=== PATIENT | male | born 1945 | race Caucasian/White ===

== ENCOUNTER 2021-01-30 13:17 | Emergency (ER) | payer BC, SELFPAY ==
--- NOTE | ~2021-01-30 | CT_ITS ---
EXAMINATION: CT brain wo con DATE: 01/30/2021 15:11 INDICATION: Status post fall. Head injury. TECHNIQUE: Computed tomography (CT) of the head was performed without intravenous contrast. The dose- length product was 681.00 mGy-cm. Automated exposure control and iterative reconstruction technique w ere employed. COMPARISON: CT dated 11/27/2007 FINDINGS: No acute intracranial hemorrhage, infarction, mass or mass effect. No ventriculomegaly or m idline shift. Basilar cisterns are patent. Mild generalized atrophy. Paranasal sinuses and mastoids a re pneumatized. No depressed skull fractures. There are scattered mild periventricular and subcortica l white matter changes, most likely related to small vessel ischemic disease (microangiopathy). IMPRESSION: 1. No acute intracranial abnormality. 2: Chronic age-related findings. Reviewed, dictated and finalized at location B.
[2021-01-30 13:25] VITALS: BP 135/80; PULSE 118; RESP 16; TEMP 36.7; O2SAT 97
--- NOTE | 2021-01-30 15:19 | ED.HEATRA ---
HPI - Head Injury General Chief complaint: Head Injury Stated complaint: fall/hi/no thinners Time Seen by Provider: 01/30/21 15:00 History of Present Illness HPI Narrative: Tripped and fell onto concrete this afternoon. Struck his forehead and sustained a laceration. No LOC, weakness, numbness, confusion, nausea. He is not on any blood thinners. Related Data Allergies Allergy/AdvReac Type Severity Reaction Status Date / Time No Known Allergies Allergy Unverified 03/15/16 07:07 Review of Systems Review of Systems: All systems reviewed & are unremarkable except as noted in HPI and below Constitutional: Constitutional: Denies fever(s) and Denies weakness Eyes: Eyes: Denies change in vision and Denies photophobia ENT: Denies dizziness Cardiovascular: Cardiovascular: Denies chest pain Respiratory: Respiratory: Denies dyspnea Gastrointestinal: Gastrointestinal: Denies nausea Genitourinary: Genitourinary: Reports no additional male genitourinary complaints Musculoskeletal: Musculoskeletal: Denies back pain Neurologic: Denies confusion, Denies dizziness, Denies syncope, Denies headache(s), Denies numbness and Denies weakness [facility] Family History Family History Father Family history of malignant neoplasm Mother Family history of chronic obstructive pulmonary disease Social History Social History Smoking status: Heavy tobacco smoker Exam Const: General: healthy appearing, no acute distress and alert Orientation/consciousness: patient oriented x3 HENMT: Other: 3 cm irregular forehead laceration with abrasion of surrounding skin Eyes: Conjunctivae: conjunctivae normal Pupils: Equal, round and reactive pupils present EOM: EOMs intact bilaterally Neck: Neck: normal visual inspection Resp: Effort & Inspection: normal respiratory effort Auscultation: clear to auscultation bilaterally Cardio: Rate: regular rate Rhythm: regular rhythm Back/Spine/Pelvis: Other: nontender Skin: General skin exam: normal color Neuro: General: patient oriented x3, moves all extremities and no focal motor deficits Cranial nerves: Yes CN's II-XII intact bilaterally Speech: normal speech Gait exam (Neuro): Normal gait present Extrem: General: normal to inspection Course Vital Signs Vital signs: Vital Signs Temperature 36.7 C 01/30/21 13:25 Pulse Rate 118 H 01/30/21 13:25 Respiratory Rate 16 01/30/21 13:25 Blood Pressure 135/80 01/30/21 13:25 Pulse Oximetry 97 01/30/21 13:25 Temperature 36.7 C 01/30/21 13:25 Pulse Rate 101 H 01/30/21 15:57 Respiratory Rate 17 01/30/21 15:57 Blood Pressure 143/81 H 01/30/21 15:57 Pulse Oximetry 96 01/30/21 15:57 Procedures Laceration Laceration 1: Site: face (forhead) Size (cm): 3 Description: irregular Depth: simple, single layer Local Anesthetic: lidocaine 1% and with epi Amount of anesthesia used (mL): 3 Pre-repair: wound explored and irrigated ====== Skin Level ====== Skin layer closed with: other (fast gut) Size (cm): 5-0 Number of sutures: 6 Technique: simple, interrupted ====== Subcutaneous Layer ====== ====== Muscle Layer ====== ====== Tendon Layer ====== MDM - Head Injury Differential Diagnosis Differential diagnosis: Likely concussion without loss of consciousness, closed head injury, subarachnoid hematoma, subdural hematoma and other (laceration) Imaging Data Radiologist's impression: ITS Impressions Head CT 01/30/21 15:18 IMPRESSION: 1. No acute intracranial abnormality. 2: Chronic age-related findings. Discharge Plan Discharge Clinical Impression: Closed head injury, Forehead laceration Patient Disposition: Home, Self-Care Condition: Stable Instructions: Head Inju
[2021-01-30] MEDS: LIDO 1%/EPINEPHRINE 1:100,000 20 ML VIAL INFILTRATE (15:34)
[2021-01-30 15:57] VITALS: BP 143/81; PULSE 101; RESP 17; O2SAT 96
== END 2021-01-30 15:58 | disposition home or self-care (01) ==
PROVIDERS: Emergency Provider Emergency Medicine; PCP Family Medicine
DX: S01.81XA Laceration without foreign body of other part of head, initial encounter (principal); F17.200 Nicotine dependence, unspecified, uncomplicated; W01.0XXA Fall on same level from slipping, tripping and stumbling without subsequent striking against object, initial encounter
CPT/HCPCS: 12013; 70450; 99284

== ENCOUNTER → 2021-04-24 10:46 | Outpatient (CLI) | payer BC, SELFPAY ==
--- NOTE | ~2021-04-24 | XR_ITS ---
XR knee LT min 4V DATE: 04/24/2021 11:11 INDICATION: Left knee pain TECHNIQUE: [place] and standing AP, PA and lateral views COMPARISON: 01/31/2012 left knee FINDINGS: There is obliteration of the medial compartment joint space. There is periarticular spurring at the patellofemoral and medial and lateral compartments. Chondrocalcinosis is noted at the lateral compartment. Diffuse osteopenia. No fracture, dislocation, periosteal reaction or bone destruction. There is mild lateral subluxation at the femoral tibial joint. There is suggestion of mild suprapatellar knee joint effusion. IMPRESSION: Tricompartment osteoarthritic arthritis, particularly severe at the medial compartment Femoral tibial joint mild lateral subluxation Osteopenia Chondrocalcinosis Reviewed, dictated and finalized at location A.
== END ==
PROVIDERS: PCP Family Medicine; Visit Provider Family Medicine
DX: M25.562 Pain in left knee (principal); M17.12 Unilateral primary osteoarthritis, left knee; S83.192A Other subluxation of left knee, initial encounter; M85.862 Other specified disorders of bone density and structure, left lower leg; M11.262 Other chondrocalcinosis, left knee
CPT/HCPCS: 73564

== ENCOUNTER 2022-05-09 08:46 | Outpatient (CLI) | payer BC, SELFPAY ==
--- NOTE | ~2022-05-09 | MR_ITS ---
EXAMINATION: MR brain/brain stem wo con DATE: 05/09/2022 09:31 INDICATION: Memory loss. TECHNIQUE: Magnetic resonance imaging (MRI) of the brain and brainstem was performed without intraven ous contrast. COMPARISON: Head CT 01/30/2021 FINDINGS: There are scattered areas of nonspecific increased T2-weighted signal intensity in the cere bral white matter. There is no intracranial hemorrhage, acute infarction, or abnormal intracranial ma ss lesion. The ventricles are normal in size. The mastoid air cells are normal. There is mild mucosal thickening in the paranasal sinuses. The orbits are normal. IMPRESSION: 1. Moderate nonspecific cerebral white matter disease, which likely represents chronic small vessel i schemic disease. Reviewed, dictated and finalized at location A. IMPRESSION: 1. Moderate nonspecific cerebral white matter disease, which likely represents chronic small vessel ischemic disease.
== END 2022-05-09 08:47 | disposition home or self-care (01) ==
LOC: ANHIMG 08:47
PROVIDERS: PCP Family Medicine; Visit Provider Family Medicine
DX: R41.3 Other amnesia (principal); R90.82 White matter disease, unspecified
CPT/HCPCS: 70551

== ENCOUNTER 2023-07-13 16:33 | Emergency (ER) | payer BC, SELFPAY ==
[2023-07-13 16:34] VITALS: BP 152/77; PULSE 89; RESP 16; TEMP 37; O2SAT 95
[2023-07-13 16:41] VITALS: O2SAT 94
[2023-07-13 16:42] VITALS: BP 154/85; O2SAT 94
--- NOTE | 2023-07-13 16:56 | PC.NURSE ---
EDP at bedside to assess pt..
--- NOTE | 2023-07-13 17:06 | ED.ABDPAIN ---
HPI - Abdominal Pain General Chief Complaint: Abdominal Pain Stated Complaint: constipation, urinary retention Time Seen by Provider: 07/13/23 16:47 History of Present Illness HPI narrative: 78-year-old male reports for evaluation for constipation for 3 days. Patient states his last bowel movement was 3 days ago and he feels like he needs to have a bowel movement but cannot. He is also reporting decreased urine output for the past 3 days. Patient reports difficulty initiating his stream and dribbling when he tries to urinate. He denies abdominal pain, nausea or vomiting, diarrhea, melena or hematochezia, chest pain or shortness of breath, fever, body aches or chills, dysuria or hematuria, back pain, scrotal or penile pain or swelling. He states he follows with urologist Dr. Carter but is unsure why, he thinks possibly for enlarged prostate. He has never had issues urinating in the past. Reports he normally has 1 bowel movement a day. Related Data Home Medications Medication Instructions Recorded Confirmed glucosamine-chondroitin 500 mg-400 1 cap PO BID 04/19/23 04/19/23 mg capsule turmeric root extract 500 mg tablet 500 mg PO BID 04/19/23 04/19/23 Allergies Allergy/AdvReac Type Severity Reaction Status Date / Time No Known Allergies Allergy Unverified 04/19/23 10:12 Review of Systems Review of Systems: CONSTITUTIONAL: Denies fever, chills EYES: Denies visual changes, redness, or discharge. ENT: Denies rhinorrhea, congestion, sore throat, or otalgia. CARDIOVASCULAR: Denies chest pain, palpitations, or edema. RESPIRATORY: Denies cough or dyspnea. GASTROINTESTINAL: See HPI GENITOURINARY: See HPI SKIN: Denies rash or itching. MUSCULOSKELETAL: Denies back pain, joint pain, or myalgia. NEUROLOGIC: Denies headache, numbness, dizziness, or weakness. PSYCHIATRIC: Denies anxiety or depression. [facility] Past Medical History Medical History Headache, unspecified Low HDL (under 40) Memory problem Obstructive and reflux uropathy, unspecified Other male erectile dysfunction Other spondylosis with radiculopathy, lumbar region Primary generalized (osteo)arthritis Primary hypertension Family History Family History Father Family history of malignant neoplasm Mother Family history of chronic obstructive pulmonary disease Social History Social History Smoking status: Former smoker Alcohol intake: current Substance use: never Substance use type: does not use Lack of Transportation: No Lack of Food: Never True Current Housing: I Have Housing Concerned About Future Housing: No Difficulty Paying Gas/Electric Bills: No Difficulty Paying for Meds: No Currently Unemployed: No Education: Trade/Vocational Certificate Difficulty w/ Childcare or Family Care: No Living arrangements: with family Occupation/Education: retired Gender identity (if verbalized by the patient): Male Sexual Orientation (if Verbalized by the Patient): Straight or Heterosexual Exam Narrative: GENERAL: Well-appearing, in no acute distress. Patient resting comfortably in exam bed. He is pleasant and conversational. HEAD: Normocephalic EYES: PERRLA ENT: Nares clear. Mucous membranes moist. Oropharynx without tonsillar hypertrophy exudate or other lesions. NECK: Supple. CHEST: No respiratory distress. Clear to auscultation, no adventitious breath sounds. HEART: Regular rate and rhythm. No murmur heard. Normal peripheral pulses. ABDOMEN: Soft, nontender, normal active bowel sounds. No rebound, guarding or rigidity. No CVA tenderness. Rectal exam w/o internal or external hemorrhoids. No tenderness to prostate. No melena or hematochezia. No fecal impaction. : Scrotum and penis without edema or erythema, no lesions. No
[2023-07-13 17:09] LABS: Basophils Percent Auto 0.2 % (0.2-1.2); Eosinophils Percent Auto 0.1 % (0-4.4); Hematocrit 39.7 % (42.0-52.0); Hemoglobin 13.4 g/dL (14.0-18.0); Immature Granulocyte Absolute 0.02 K/mm3 (0.00-0.031); Immature Granulocyte Percent A 0.2 % (0-0.5); Lymphocytes Absolute Auto 1.35 K/mm3 (0.9-3.2); Lymphocytes Percent Auto 12.2 % (18.3-44.2); Mean Corpuscular HGB Conc 33.8 g/dl (32-36); Mean Corpuscular Hemoglobin 31.5 pg (26-34); Mean Corpuscular Volume 93.2 fl (80-100); Mean Platelet Volume 10.9 fl (7.4-10.4); Monocytes Absolute Auto 0.8 K/mm3 (0.1-0.6); Monocytes Percent Auto 6.8 % (2.6-8.5); Neutrophils Absolute Auto 8.9 K/mm3 (1.3-6.7); Neutrophils Percent Auto 80.5 % (45.5-73.1); Platelet Count Result 183 k/mm3 (150-375); Red Blood Count 4.26 M/mm3 (4.6-6.20); Red Cell Distribution Width 12.7 % (11.5-14.5); White Blood Count 11.1 K/mm3 (4.5-10.0)
[2023-07-13 17:18] LABS: Alanine Aminotransferase 17 U/L (6-50); Albumin Level 4.5 g/dL (3.5-5.1); Alkaline Phosphatase 80 U/L (38-126); Anion Gap 11 mmol/L (8-16); Aspartate Amino Transferase 23 U/L (17-59); Blood Urea Nitrogen 16 mg/dL (9-20); Carbon Dioxide 25 mmol/L (22-30); Chloride 99 mmol/L (98-107); Estimated CRCL calculation 46 ml/min; Estimated Glomerular Filt Rate 42; Glucose 127 mg/dL (65-110); Lipase 77 U/L (23-300); Potassium 3.6 mmol/L (3.4-5.0); Sodium 135 mmol/L (137-145)
[2023-07-13] MEDS: SODIUM CHLORIDE 0.9% IV 1,000 ML 999 ML IV CONT (17:25)
[2023-07-13 17:28] LABS: Bacteria Urine 1+ /hpf; Non Pathogenic Casts 0-2; RBC Urine 51-100 /hpf (0-2); Squamous Epithelial Cell Urine None seen /hpf (Few)
[2023-07-13 17:35] LABS: Appearance Urine Slightly Cloudy (Clear); Bilirubin Urine Negative (Negative); Blood Urine 2+ (Negative); Color Urine Yellow (Yellow); Glucose Urine UA Negative (Negative); Ketones Urine 1+ mg/dL (Negative); Leukocyte Esterase Ur Trace LEU/UL (Negative); Nitrate Urine Positive (Negative); Protein Urine Negative (Negative); Urobilinogen Urine 0.2 mg/dL (<2.0); pH Urine 6.5 (5.0-9.0)
[2023-07-13 17:36] LABS: Add Urine Microscopic? YES
[2023-07-13] MEDS: CIPROFLOXACIN 500 MG TAB PO (19:11)
[2023-07-13 19:43] VITALS: BP 101/65; PULSE 85; RESP 16; O2SAT 95
== END 2023-07-13 19:46 | disposition home or self-care (01) ==
PROVIDERS: Emergency Medicine; Emergency Provider Physician Assistant; PCP Family Medicine
DX: K59.00 Constipation, unspecified (principal); R33.9 Retention of urine, unspecified; R82.998 Other abnormal findings in urine; I10 Essential (primary) hypertension; M19.90 Unspecified osteoarthritis, unspecified site; Z87.891 Personal history of nicotine dependence
CPT/HCPCS: 36415; 51702; 80053; 81001; 83690; 85025; 87086; 87147; 87181; 87186; 99283; A9270; J7030

== ENCOUNTER → 2023-11-01 10:14 | Outpatient (CLI) | payer BC, SELFPAY ==
--- NOTE | ~2023-11-01 | CT_ITS ---
CT of the Abdomen and Pelvis: Indication: Microscopic hematuria Technique: 2.5 mm axial scans were obtained through the abdomen and pelvis prior to and following in travenous administration of 130 cc of Omnipaque 350. Dose reduction technique was used on this scan b y utilizing automated exposure control and iterative reconstruction technique. The dose-length produc t (DLP) was 2562.17 mGy-cm. Findings: Scans through the lung bases are unremarkable. Hepatic cysts are present. Calcified splenic granulomas are present. The pancreas, gallbladder, adren al gland are within normal limits. There are bilateral nonobstructing renal stones, measuring about 4 mm in size in both left and right kidney. No ureteral stone or hydronephrosis evident on either side . No evidence of aortic aneurysm. No lymphadenopathy. No bowel obstruction or bowel wall thickening. There is no evidence to suggest acute appendicitis. Images through the pelvis were performed. 6 mm urinary bladder stone present. Prostate gland signific antly enlarged, indenting through the bladder base. Small fat-containing left inguinal hernia noted. No ascites. Impression: Small nonobstructing bilateral renal stones, as detailed above. 6 mm urinary bladder stone. Enlarged prostate gland. Numerous small fat-containing left inguinal hernia. Reviewed, dictated and finalized at location . TY AGENT Impression: Small nonobstructing bilateral renal stones, as detailed above. 6 mm urinary bladder stone. Enlarged prostate gland. Numerous small fat-containing left inguinal hernia.
--- NOTE | ~2023-11-01 | XR_ITS ---
XR abdomen/kub 1V 11/01/2023 11:05 INDICATION: Microscopic hematuria TECHNIQUE: KUB COMPARISON: None FINDINGS: Bowel gas pattern is normal. There is no evidence of free air, mass, organomegaly, ascites or obstruction. There are bilateral renal stones.. Severe lumbar spondylosis with dextroscoliosis. T here are calcified granulomas of the spleen. Mild osteoarthritis of the hips. Elevated right diaphrag m.. IMPRESSION: 1: Bilateral nephrolithiasis.. Reviewed, dictated and finalized at location B. [employer]
[2023-11-01 10:42] LABS: Estimated Glomerular Filt Rate > 60
== END ==
PROVIDERS: PCP Urology; Visit Provider Urology
DX: N20.0 Calculus of kidney (principal); N21.0 Calculus in bladder; N40.0 Benign prostatic hyperplasia without lower urinary tract symptoms; R31.29 Other microscopic hematuria
CPT/HCPCS: 74018; 74178; Q9967